=== PATIENT | female | born 1980 | race Hispanic/Latino ===

== ENCOUNTER → 2018-05-11 | Day surgery (SDC) | payer BC ==
[~2018-05-11] MED LIST: FENTANYL CITRATE/PF 100MCG/2 ML INJ ONE; LIDOCAINE HCL 2% LOCAL INJ 5 ML SDV VIAL INJ ONE; MIDAZOLAM HCL 2 MG/2 ML VIAL ONE; OMEPRAZOLE40 MG PO; PROPOFOL IV EMULSION 10 MG/ML 20 ML VIAL ONE
[2018-05-11 10:45] VITALS: BP 110/70
--- NOTE | 2018-05-11 13:38 | Operative Report ---
DATE OF PROCEDURE: May 11, 2018 REFERRING PHYSICIAN: Keara Dior MD PROCEDURE PERFORMED: Esophagogastroduodenoscopy with biopsies. INDICATIONS FOR EGD: Heartburn, bloating, early satiety. MEDICATION: Patient was done under MAC. Please see anesthesiologist's note. PROCEDURE: With the patient in the left lateral decubitus position, the flexible fiberoptic Olympus gastroscope was introduced into the esophagus under direct visualization without any difficulty. There was some patchy erythema noted in the distal esophagus. 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 The scope was then advanced with ease into the stomach, traversing a moderate to large size hiatal hernia. Patient is apparently status post gastric sleeve. Mucosa overlying the body and the antrum revealed some patchy erythema and low-grade to moderate edema, and biopsies were obtained and sent to stain for H. pylori. There was some nodularity noted in the distal gastric incision, and biopsies were obtained. The pylorus was of normal contour and shape. It was intubated with ease, and the scope was advanced all the way to the 2nd portion of the duodenum. Biopsies were obtained from proximal 2nd portion and the duodenal bulb to rule out sprue. The scope was then withdrawn back into the stomach and retroflexed, and the previously visualized hiatal hernia was also noted in the retroflexed position. The scope was then straightened out. It was subsequently withdrawn. Patient tolerated the procedure well. IMPRESSION 1. Distal esophagitis, mild. 2. Lower esophageal sphincter incompetent. 3. Moderate to large hiatal hernia. 4. Status post gastric sleeve. Positive nodularity in distal surgical incision site. Biopsies obtained. 5. Gastritis, biopsied. Biopsies sent to stain for H. pylori. 6. Rule out sprue. PLAN: Follow up histology. Initiate Protonix 40 mg 1 p.o. q.a.m. a.c. Job#: [id number] cc:KEARA DIOR MD
== END | disposition home or self-care (01) ==
LOC: OR 07:33
PROVIDERS: ATTEND Internal Medicine Gastroenterology
DX: K29.70 Gastritis, unspecified, without bleeding (principal); K31.89 Other diseases of stomach and duodenum; K20.9 Esophagitis, unspecified; K22.0 Achalasia of cardia; K44.9 Diaphragmatic hernia without obstruction or gangrene; K59.00 Constipation, unspecified; Z98.84 Bariatric surgery status; Z68.34 Body mass index [BMI] 34.0-34.9, adult
CPT/HCPCS: 43239; 81025; J2001; J2250; J2704